=== PATIENT | female | born 1990 | race Caucasian/White ===

== ENCOUNTER 2019-04-11 19:38 | Emergency (ER) | payer OTHER ==
[~2019-04-11] VITALS: Ht 162.6 cm; Wt 61.2 kg
[2019-04-11 19:44] VITALS: Ht 162.6 cm; Wt 61.2 kg
[2019-04-11 20:14] LABS: BASOPHIL % 0.6 % (0-2); PLATELET COUNT 234 x10^3mcL (130-400); RED CELL DISTRIBUTION WIDTH 13.4 % (11.5-14.5)
[2019-04-11 20:20] LABS: CARBON DIOXIDE 24.8 mmol/L (21-32); CHLORIDE SERUM 102 mmol/L (98-107); CREATININE SERUM 0.8 mg/dL (0.6-1.0); GFR1 > 60 mL/min; GLUCOSE SERUM 88 mg/dL (74-106); POTASSIUM SERUM 4.1 mmol/L (3.5-5.1); SODIUM SERUM 137 mmol/L (136-145)
[2019-04-11 20:24] LABS: ALKALINE PHOSPHATASE 73 U/L (46-116); ALT/SGPT 19 U/L (14-59); AST/SGOT 14 U/L (15-37); BILIRUBIN TOTAL 0.4 mg/dL (0.20-1.00)
[2019-04-11 20:35] LABS: TOTAL PROTEIN, SERUM 8.3 g/dL (6.4-8.2)
[2019-04-11 22:37] LABS: APPEARANCE CSF CLEAR; COLOR CSF COLORLESS
[2019-04-11 22:38] LABS: RBC CSF 330 /cumm (0); VOLUME CSF 2.5 mL; WBC CSF 0 /cumm (0-5)
[2019-04-11 23:02] LABS: TOTAL PROTEIN CSF 22.9 mg/dL (15-45)
[2019-04-12 00:55] VITALS: BP 96/53
== END 2019-04-12 00:56 | disposition home or self-care (01) ==
LOC: ED 19:38
PROVIDERS: Emergency Medicine
DX: B34.9 Viral infection, unspecified (principal); R51 Headache
CPT/HCPCS: 87804; J0696; J2001; J2270; J7030